=== PATIENT | male | born 1945 ===

== ENCOUNTER 2017-11-17 08:41 | Day surgery (SDC) | payer MEDICARE ==
[~2017-11-17 08:41] MED LIST: Buffered Lidocaine 0.9% SYRIN* 5 ML/SYR SYRINGE INTRADERM ONE; Dexamethasone IV* 4 MG/ML 1 ML (4 MG) IV SLOW PU ONE; Dexamethasone IV* 4 MG/ML 1 ML (4 MG) ONE; Famotidine TAB* 20 MG ONE; Famotidine TAB* 20 MG PO ONE
[2017-11-17] MEDS ORDERED: Midazolam* 1 MG/ML 2 ML VIAL (2 MG) ONE (09:53)
[2017-11-17] MEDS ORDERED: Propofol* 10 MG/ML 20 ML BTL IV PUSH ONE (09:59)
[2017-11-17] MEDS ORDERED: Ondansetron INJ* 2 MG/ML VIAL ONE (09:59)
[2017-11-17] MEDS ORDERED: Ketorolac INJ* 30 MG/ML 1 ML VIAL ONE (09:59)
[2017-11-17] MEDS ORDERED: Tetracaine 0.5% OPTH.SOL 4 ML* 1 DROP BTL ONE (10:19)
[2017-11-17] MEDS ORDERED: Neomycin/Polymy/Dex OPHTH.OIN* 3.5 GM ONE (10:19)
[2017-11-17] MEDS ORDERED: BSS OPTH.SOL* BTL ONE (10:19)
[2017-11-17] MEDS ORDERED: Phenylephrine 2.5% OPTH.SOL* 2 ML BTL ONE (10:19)
[2017-11-17] MEDS ORDERED: fentaNYL* 50 MCG/ML 2 ML VIAL (100 MCG VIAL) IV PRN (10:26)
[2017-11-17] MEDS ORDERED: Naloxone* 0.4 MG/ML 1 ML VIAL IV PRN (10:26)
[2017-11-17] MEDS ORDERED: DiMENhydriNATE IV* 50 MG/ML VIAL IV PUSH PRN (10:26)
[2017-11-17] MEDS ORDERED: Lidocaine 2% PF * 5 ML VIAL ONE (10:33)
[2017-11-17 11:53] VITALS: BP 136/79
--- NOTE | 2017-11-18 09:20 | OP ---
DATE OF OPERATION: 11/17/17 [facility] DATE OF : 43 SURGEON: Max Guerrero MD ACTIVITIES CONCIERGE: None. ANESTHESIA: General. 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 OPERATIVE PROCEDURE: Recess left inferior rectus muscle 4.5 mm. COMPLICATIONS: None. BLOOD LOSS: Minimal. DESCRIPTION OF PROCEDURE: The patient has been brought to the operating room and she received general anesthesia. A drop of Tetracaine and a drop of phenylephrine were placed in his left eye. The patient was prepped and draped in the usual sterile fashion for ophthalmic surgery and attention was directed to the left eye where a speculum was placed. Forced ductions were performed showing restriction to upgaze in the left eye. During forced duction, it was noted the conjunctivae was quite friable and had a tendency to tear and the patient developed subconjunctival hemorrhages immediately. It was decided that a limbal approach would be more prudent as we continued. A 6-0 silk suture was placed through the conjunctiva and tenons near the limbus at the 9 o'clock and 3 o'clock position. A hemostat was placed on each and the patient's eye was brought into upgaze. A marking pen was used to hudson the area to be incised. A limbal peritomy was performed with a relaxation incision heading inferotemporally in the inferotemporal quadrant and inferonasally in the inferonasal quadrant. The inferior rectus muscle was isolated with Savage muscle hook. Sharp and blunt dissection was performed to remove any connections from the inferior rectus to the overlying lower lid retractors. A double arm 6-0 Vicryl suture was woven into the muscle near its insertion and locked at either end. The muscle was disinserted from the globe with a Anusha scissors. The original muscle insertion stump was grasped with locking forceps. A hudson was made with a caliper 4.5 mm posterior to the original insertion. The muscle was recessed to this point and tied securely. Sutures were trimmed. Locking forceps were removed. Hemostasis was achieved with gentle cauterization. The conjunctiva was brought to its normal anatomical position. The traction sutures were taken away. The conjunctiva was sutured into place using interrupted 6-0 gut sutures. At the end of the case, the eye appeared straight and forced ductions were improved. There was an extensive subconjunctival hemorrhage but the conjunctiva was closed nicely. There was no ongoing bleeding. The speculum was removed. Topical Maxitrol ointment was placed on the surface of the eye. Patient was taken to recovery room after uneventful awakening and postoperative instructions and followup appointment were given. [id number]/[facility] #: [id number] MTDD
== END 2017-11-17 11:55 | disposition home or self-care (01) ==
LOC: OREAST 08:41
PROVIDERS: ATTEND Ophthalmology
DX: H51.22 Internuclear ophthalmoplegia, left eye (principal); H50.22 Vertical strabismus, left eye; E07.9 Disorder of thyroid, unspecified; I10 Essential (primary) hypertension; E78.00 Pure hypercholesterolemia, unspecified; Z85.3 Personal history of malignant neoplasm of breast
CPT/HCPCS: A9270-GY; J1100; J1885; J2250; J2405; J2704

== ENCOUNTER 2017-11-24 10:30 | Day surgery (SDC) | payer MEDICARE ==
[~2017-11-24 10:30] MED LIST changes: -Dexamethasone IV* 4 MG/ML 1 ML (4 MG) IV SLOW PU ONE; -Dexamethasone IV* 4 MG/ML 1 ML (4 MG) ONE; +Famotidine IV* 10 MG/ML 2 ML (20 mg) IV ONE; -Famotidine TAB* 20 MG ONE; -Famotidine TAB* 20 MG PO ONE
[2017-11-24] MEDS ORDERED: Acetaminophen TAB* 325 MG PO PRN (10:44)
[2017-11-24] MEDS ORDERED: Naloxone* 0.4 MG/ML 1 ML VIAL IV PRN (10:44)
[2017-11-24] MEDS ORDERED: DiMENhydriNATE IV* 50 MG/ML VIAL IV PUSH PRN (10:44)
[2017-11-24] MEDS ORDERED: HYDROmorphone INJ* 1 MG/ML CARPUJECT SYRINGE IV PRN (10:44)
[2017-11-24] MEDS ORDERED: Famotidine IV* 10 MG/ML 2 ML (20 mg) ONE (11:16)
[2017-11-24] MEDS ORDERED: Midazolam* 1 MG/ML 5 ML VIAL (5 MG) ONE (11:40)
[2017-11-24] MEDS ORDERED: fentaNYL* 50 MCG/ML 2 ML VIAL (100 MCG VIAL) ONE (11:40)
[2017-11-24] MEDS ORDERED: BSS OPTH.SOL* BTL ONE (12:47)
[2017-11-24] MEDS ORDERED: Propofol* 10 MG/ML 20 ML BTL IV PUSH ONE (13:12)
[2017-11-24] MEDS ORDERED: Ondansetron INJ* 2 MG/ML VIAL ONE (13:12)
[2017-11-24] MEDS ORDERED: Lidocaine 2% PF * 5 ML VIAL ONE (13:12)
[2017-11-24 14:33] VITALS: BP 138/75
[2017-11-24] MEDS ORDERED: Tetracaine 0.5% OPTH.SOL 4 ML* 1 DROP BTL ONE (14:53)
[2017-11-24] MEDS ORDERED: Neomycin/Polymy/Dex OPHTH.OIN* 3.5 GM ONE ×2 (14:53→14:55)
[2017-11-24] MEDS ORDERED: Phenylephrine 2.5% OPTH.SOL* 2 ML BTL ONE (14:53)
[2017-11-24] MEDS ORDERED: Neomycin/Polymy/Dex OPTH.SUSP* MAXITROL 0.1% 5 ML ONE (14:54)
--- NOTE | 2017-11-25 07:58 | OP ---
DATE OF OPERATION: 11/24/17 [facility] DATE OF : 43 SURGEON: Max Guerrero MD MATERIAL RECLAIMER: None. ANESTHESIA: General. PRE-OP DIAGNOSIS: Residual left hypotropia of approximately 15 prism diopters, Graves' ophthalmopathy. POST-OP DIAGNOSIS: Residual left hypotropia of approximately 15 prism diopters , Graves' ophthalmopathy. OPERATIVE PROCEDURE: Explore and re-recess left inferior rectus muscle with adjustable suture. COMPLICATIONS: None. BLOOD LOSS: Minimal. DESCRIPTION OF PROCEDURE: The patient was brought to the operating room and received general anesthesia. Attention was directed to the left eye which had had previous eye muscle surgery 1 week ago. Speculum was placed in that left eye. The gut sutures closing the conjunctivae were visible and almost dissolved. They were trimmed and the conjunctiva was reflected back inferiorly exposing the inferior rectus muscle which had been recessed approximately 4 mm. The muscle was noted to be 3.75 mm posterior to original insertion and in good position. Probe sucks were again performed and showed very mild restriction. Because the patient still had a hypotropia, it was decided that that muscle should be recessed further. A Mabton muscle clamp was placed across the muscle near its insertion. The muscle was disinserted from the globe. A double arm 6-0 Vicryl suture was woven through the distal muscle stump and locked at either end. The Mabton muscle clamp was removed. Cauterization of the underlying scleral bed as needed was performed to achieve hemostasis. The suture needles were passed through the original insertion site. The muscle was allowed to hang back 6 mm from the original insertion site and the sutures were tied in a half bow. The conjunctiva was closed only on the nasal aspect with interrupted 6-0 gut sutures. A drop of topical Tetracaine was placed in the eye and the patient was sent to recovery room and awakened uneventfully. About a half an hour later, the patient was placed in an upright position and his motility was examined. He continued to have a very small left hypotropia measuring approximately 5 prism diopters. He was returned to the operating room, but not given any further sedation. Here, under clean conditions, a drop of tetracaine was placed in his left eye and the speculum was reintroduced. The half bow was undone and the suture was allowed to hang back the muscle another 1.5 mm. The suture was then put into a half bow and the patient was sat in an upright position. As he fixated on a distant target, he appeared to have no double vision. The eyes appeared aligned. The patient was then reclined and the bow was converted to a knot. The sutures were trimmed. The conjunctiva was closed with interrupted gut sutures. The speculum was removed. Topical tetracaine and Maxitrol ointment was placed in the surface of the eye. The patient was resent to the recovery room in stable condition with post-operative instructions and followup appointment given. [id number]/[facility] #: [id number] MOLLY
== END 2017-11-24 15:05 | disposition home or self-care (01) ==
LOC: OREAST 10:30
PROVIDERS: ATTEND Ophthalmology
DX: H50.22 Vertical strabismus, left eye (principal); I10 Essential (primary) hypertension; Z86.718 Personal history of other venous thrombosis and embolism; Z79.01 Long term (current) use of anticoagulants; Z86.711 Personal history of pulmonary embolism; E03.9 Hypothyroidism, unspecified; E78.5 Hyperlipidemia, unspecified; I73.9 Peripheral vascular disease, unspecified; Z72.0 Tobacco use; Z85.3 Personal history of malignant neoplasm of breast; E05.00 Thyrotoxicosis with diffuse goiter without thyrotoxic crisis or storm
CPT/HCPCS: A9270-GY; J2250; J2405; J2704; J3010